=== PATIENT | female | born 1975 | race African-American/Black ===

== ENCOUNTER 2017-12-23 02:11 | Emergency (ER) | payer SELFPAY ==
[~2017-12-23] VITALS: Ht 167.6 cm; Wt 97.5 kg
[2017-12-23 02:40] VITALS: BP 106/66
[2017-12-23] MEDS ORDERED: IBUPROFEN600 MG ORAL (02:56)
[2017-12-23] MEDS ORDERED: CYCLOBENZAPRINE10 MG ORAL (02:56)
--- NOTE | 2017-12-23 02:56 | Emergency Room Report ---
History of Present Illness General Chief Complaint: General Complaint Source: Patient Present Illness HPI This is a 42-year-old female with no severe with past medical history. She presents with chief complaint of right ankle/foot pain. Onset around 6:30 a.m. It is episodic and comes in waves. Sharp pain lasted for a few seconds. No nausea no vomiting. No trauma. Nothing made it better. Nothing made it worse. She took 2 Excedrin it seemed to slow down the episodes. Allergies: Coded Allergies: PINEAPPLE (Verified Allergy, Unknown, 11/28/10) Patient History Past Medical History: see triage record, old chart reviewed Past Surgical History: none Pertinent Family History: none Social History: Denies: smoking Now: No Immunizations: other Reviewed Nursing Documentation: PMH: Agreed, PSxH: Agreed Nursing Documentation-PMH Past Medical History: No Stated History Review of Systems Eye: Denies: eye pain, blurred vision ENT: Denies: ear pain, nose congestion, throat swelling Respiratory: Denies: cough, shortness of breath Cardiovascular: Denies: chest pain, palpitations Gastrointestinal: Denies: abdominal pain, diarrhea, nausea, vomiting Musculoskeletal: Reports: joint pain, Denies: back pain Skin: Denies: rash Neurological: Denies: headache, numbness Endocrine: Denies: increased thirst, increased urine Hematologic/Lymphatic: Denies: easy bruising All Other Systems: negative except mentioned in HPI Physical Exam Vital Signs Date Time Temp Pulse Resp B/P (MAP) Pulse Ox O2 Delivery O2 Flow Rate FiO2 12/23/17 02:28 97.5 78 16 106/66 98 Room Air 97.5 vitals normal Sp02 EP Interpretation: reviewed, normal General Appearance: well appearing, no apparent distress, alert Head: normocephalic, atraumatic Eyes: bilateral eye PERRL, bilateral eye EOMI ENT: hearing grossly normal, normal pharynx Neck: full range of motion, supple, no meningismus Respiratory: chest non-tender, lungs clear, normal breath sounds Cardiovascular #1: regular rate, rhythm, no murmur Gastrointestinal: normal bowel sounds, non tender, no mass, no organomegaly, no bruit, non-distended Musculoskeletal: back normal, gait/station normal, normal range of motion, other - She points to the medial aspect of the Achilles tendons as area of pain and spasm. No deformity. No calf tenderness. Pulses normal. Full range of motion. Neurologic: alert, oriented x3 Psychiatric: mood/affect normal Skin: warm/dry Medical Decision Making Diagnostic Impression: Primary Impression: Tendonitis, Achilles, right ER Course Patient with pain over the Achilles tendon area. Probably a tendinitis area clinically no evidence of fracture or dislocation. She is walking around without any difficulty. I see no evidence of septic joint or DVT. We'll discharge home. Last Vital Signs Date Time Temp Pulse Resp B/P (MAP) Pulse Ox O2 Delivery O2 Flow Rate FiO2 12/23/17 02:28 97.5 78 16 106/66 98 Room Air 97.5 Status: improved Disposition: HOME, SELF-CARE Condition: Stable Scripts Cyclobenzaprine Hcl* (FLEXERIL*) 10 Mg Tablet 10 MG ORAL THREE TIMES A DAY, #21 TAB Prov: OLI CHILDRESS M.D. 12/23/17 Ibuprofen* (MOTRIN*) 600 Mg Tablet 600 MG ORAL THREE TIMES A DAY, #30 TAB 0 Refills Prov: OLI CHILDRESS M.D. 12/23/17 Referrals: NOT CHOSEN IPA/,REFERRING (PCP) Additional Instructions: Follow-up with your DrLuis in 3-5 days. Return if symptom worsen. You may need an MRI if symptoms don't improve. OLI CHILDRESS M.D. Dec 23, 2017 02:56
[2017-12-23 03:13] VITALS: BP 106/66
== END 2017-12-23 03:13 | disposition home or self-care (01) ==
LOC: EMR 02:38
DX: M76.61 Achilles tendinitis, right leg (principal); Z91.018 Allergy to other foods
CPT/HCPCS: 99284